=== PATIENT | female | born 1950 | race Caucasian/White ===

== ENCOUNTER 2021-02-14 07:48 | Outpatient (CLI) | payer MEDICARE, SELFPAY ==
--- NOTE | ~2021-02-14 | MR_ITS ---
EXAMINATION: MR brain/brain stem wo/w con DATE: 02/14/2021 09:45 INDICATION: Congenital malformation of corpus callosum. TECHNIQUE: Magnetic resonance imaging (MRI) of the brain and brainstem was performed without and with 14 mL MultiHance intravenous contrast. Sequences included sagittal and axial T1-weighted FSE, axial diffusion-weighted FS EPI, axial T2*-weighted GRE, axial T2-weighted FLAIR Propeller, and axial T2-we ighted Propeller. Postcontrast sequences included axial, sagittal, and coronal T1-weighted FSE. Appar ent diffusion coefficient (ADC) maps were created. COMPARISON: Brain MRI 03/11/2011 FINDINGS: In the body of the corpus callosum on the left, there is an 11 mm mass of mixed increased a nd decreased T2 weighted signal intensity and T1-weighted signal intensity and decreased T2*weighted signal intensity. A portion of the mass enhances. There are scattered areas of nonspecific increased T2-weighted signal intensity in the cerebral white matter, which is within normal limits for the greg ent's age. There is no acute ischemic infarct. The ventricles are normal in size. There is mild mucos al thickening in the paranasal sinuses. The orbits are normal. The mastoid air cells are normal. IMPRESSION: 1. 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 Reviewed, dictated and finalized at location A.
[2021-02-14 08:50] LABS: Estimated Glomerular Filt Rate > 60
== END 2021-02-14 07:49 | disposition home or self-care (01) ==
PROVIDERS: PCP Family Medicine; Visit Provider Nurse Practitioner
DX: Q04.0 Congenital malformations of corpus callosum (principal)
CPT/HCPCS: 70553; A9577